=== PATIENT | female | born 1935 | race Caucasian/White ===

== ENCOUNTER 2018-02-11 20:02 | Observation (INO) | payer OTHER ==
[2018-02-11 20:31] LABS: Absolute Lymphocytes (CBC) 2.3 K/uL (0.7-4.9); Absolute Monocytes 1.1 K/uL (0.1-1.3); Absolute Neutrophil 5.7 K/uL (1.8-8.0); Basophils % 0.6 % (0-1.3); Eosinophils % 1.9 % (0-4.4); Hematocrit 41.5 % (36.0-45.0); Lymphocytes % 24.6 % (15.3-44.8); MCH 31.2 pg (27.0-35.0); MCV 92.2 fL (80-100); MPV 7.5 fL (7.6-11.3); Monocytes % 11.4 % (3.3-12.3)
[2018-02-11 20:36] LABS: Protime INR 0.87
[2018-02-11] MEDS ORDERED: NA CHLORIDE 0.9% 1,000 ML ONE (20:46)
--- NOTE | 2018-02-11 20:46 | ER ---
Nurse's Notes [facility] Name: Tonya Lindsey Age: 83 yrs Sex: Female : 1935 Arrival Date: 02/11/2018 Time: 20:03 Bed 6 Private MD: Alex Albert V Diagnosis: Chest pain, unspecified;Essential (primary) hypertension Presentation: 02/11 20:09 Presenting complaint: Patient states: she has been having chest heaviness for several bb days worsening the last two days. Transition of care: patient was not received from another setting of care. Onset of symptoms was February 09, 2018. Risk Assessment: Do you want to hurt yourself or someone else? Patient reports no desire to harm self or others. Initial Sepsis Screen: Does the patient meet any 2 criteria? No. Patient's initial sepsis screen is negative. Does the patient have a suspected source of infection? No. Patient's initial sepsis screen is negative. Care prior to arrival: None. 20:09 Method Of Arrival: Wheelchair bb 20:09 Acuity: MAHIN 2 bb Historical: - Allergies: 20:13 Codeine; bb 20:13 Aspirin; bb 20:13 PENICILLINS; bb - PMHx: 20:13 Hypertension; bb - PSHx: 20:13 Appendectomy; Thyroidectomy; bb - Immunization history:: Adult Immunizations up to date. - Social history:: Smoking status: Patient/guardian denies using tobacco, never smoked. - Ebola Screening: : Patient negative for fever greater than or equal to 101.5 degrees Fahrenheit, and additional compatible Ebola Virus Disease symptoms Patient denies exposure to infectious person Patient denies travel to an Ebola-affected area in the 21 days before illness onset. - Family history:: not pertinent. Screenin:16 Abuse screen: Denies threats or abuse. Denies injuries from another. Nutritional bs1 screening: No deficits noted. Tuberculosis screening: No symptoms or risk factors identified. Fall Risk None identified. Assessment: 20:15 General: Appears in no apparent distress. uncomfortable, Behavior is cooperative, bs1 appropriate for age, anxious. Pain: Complains of pain in mid chest Pain does not radiate. Pain began gradually. Pain: Pain began 2-3 days ago. Neuro: Level of Consciousness is awake, alert, obeys commands, Oriented to person, place, time, situation, Appropriate for age Denies blurred vision numbness headache. Cardiovascular: Reports chest pain, Denies nausea, shortness of breath, Heart tones S1 S2 present Capillary refill < 3 seconds Patient's skin is warm and dry. Respiratory: Airway is patent Trachea midline Respiratory effort is even, unlabored, Respiratory pattern is regular, symmetrical, Breath sounds are clear bilaterally. GI: No signs and/or symptoms were reported involving the gastrointestinal system. : No signs and/or symptoms were reported regarding the genitourinary system. EENT: No signs and/or symptoms were reported regarding the EENT system. Derm: Skin is intact, Skin is pink, warm \T\ dry. normal. Musculoskeletal: Circulation, motion, and sensation intact. Capillary refill < 3 seconds, Range of motion: intact in all extremities. 21:40 Reassessment: CHELSEA Adair Informed Dr Denton of blood pressure increased. Orders given tl2 by 21:55 Reassessment: Blood pressure now 155/61, pulse 66. tl2 22:17 Reassessment: Patient appears in no apparent distress at this time. Patient and/or bs1 family updated on plan of care and expected duration. Pain level reassessed. Patient is alert, oriented x 3, equal unlabored respirations, skin warm/dry/pink. Informed patient of admission to 4th floor/ POC. Patient states understanding of POC. Patient denies pain at this time. Patient states feeling better. Vital Signs: 20:14 BP 196 / 83; Pulse 65; Resp 18; Temp 98.6; Pulse Ox 98% on R/A; Pain 0/10; bb 20:53 BP 170 / 81; Pulse 61; Resp 18; Pulse Ox 97% on R/A; mw2 20:54 Weight 88.59 kg (M); bs1 21:33 BP 208 / 57; Pulse 66; Resp 17; Pulse Ox 95% on R/A; tl2 21:45 BP 150 / 56; Pulse 64; Resp 17 S; Pulse Ox 99% on R/A; tl2 21:49 BP 155 / 61; Pulse 66; Resp 18; Pulse Ox 96% on R/A; tl1 22:15 BP 143 / 54; Pulse 67; Resp 17; Temp 98(O); Pulse Ox 98% on R/A; Pain 0/10; bs1 ED Course: 20:03 Patient arrived in ED. es 20:04 Alex Albert MD is Private Physician. es 20:10 Patient has correct armband on for positive identification. Placed in gown. Bed in low bs1 position. Call light in reach. Side rails up X 1. control equipment electrician on. Pulse ox on. NIBP on. Warm blanket given. 20:11 Triage completed. bb 20:14 Arm band placed on right wrist. bb 20:15 No provider procedures requiring assistance completed. Inserted saline lock: 20 gauge bb in left wrist, using aseptic technique. 20:15 Patient maintains SpO2 saturation greater than 95% on room air. bs1 20:23 X-ray completed. Portable x-ray completed in exam room. Patient tolerated procedure bb2 well. 20:25 XRAY Chest (1 view) In Process Unspecified. EDMS 20:29 Leonides Denton MD is Attending Physician. vicki 20:45 Alex Albert MD is Hospitalizing Provider. vicki 21:14 Debi Wong, RN is Primary Nurse. bs1 22:17 Patient admitted, IV remains in place. intact. bs1 Administered Medications: 20:45 Drug: NS 0.9% 1000 ml Route: IV; Rate: 75 ml/hr; Site: right forearm; bs1 21:54 Follow up: IV Status: Infusion continued upon admission tl2 21:03 Drug: Lovenox 1 mg/kg Route: Sub-Q; Site: right lower abdomen; bs1 21:17 Follow up: Response: No adverse reaction bs1 21:04 Drug: Lopressor 25 mg Route: PO; bs1 21:54 Follow up: Response: Blood pressure is unchanged tl2 21:04 Drug: PlaVIX 300 mg Route: PO; bs1 21:54 Follow up: Response: No adverse reaction tl2 21:41 Drug: hydrALAZINE 10 mg Route: PO; tl1 21:53 Follow up: Response: No adverse reaction tl2 21:41 Drug: hydrALAZINE 5 mg Route: IV; Rate: per protocol; Site: right antecubital; tl1 21:54 Follow up: IV Status: Completed infusion tl2 22:15 Not Given (informed Dr Denton of latest blood pressure, order to not give): bs1 hydrALAZINE 5 mg IV at per protocol once Outcome: 20:45 Decision to Hospitalize by Provider. vicki 22:16 Admitted to Tele accompanied by nurse, via wheelchair, room 412, with chart, Report bs1 called to CHELSEA Allison 22:16 Condition: stable 22:16 Instructed on the need for admit, Demonstrated understanding of instructions. 22:36 Patient left the ED. tl2 Signatures: Dispatcher [employer] Leonides Tyler MD MD cha Salyer, Lorenza Gutierrez, RN RN bb Jeannette Aburto RN RN tl1 Licha Floyd RN RN tl2 Debi Wren bbDebi Kirk RN RN bs1 Sondra Hernandez 2
--- NOTE | 2018-02-11 20:46 | EDPHYS ---
Physician Documentation [facility] Name: Tonya Lindsey Age: 83 yrs Sex: Female : 1935 Arrival Date: 02/11/2018 Time: 20:03 Bed 6 Private MD: Alex Albert V ED Physician Leonides Denton HPI: 02/11 20:42 This 83 yrs old Female presents to ER via Wheelchair with complaints of Chest vicki Pain. 20:42 The patient or guardian reports chest pain that is located primarily in the substernal vicki area. Onset: 2 day(s) ago. The pain does not radiate. Associated signs and symptoms: Pertinent positives: shortness of breath. The chest pain is described as a pressure, squeezing. The chest pain is described as a pressure, squeezing. Duration: The patient or guardian reports multiple episodes, that are intermittent. Severity of pain: At its worst the pain was mild. The patient has experienced similar episodes in the past, a few times. Historical: - Allergies: 20:13 Codeine; bb 20:13 Aspirin; bb 20:13 PENICILLINS; bb - PMHx: 20:13 Hypertension; bb - PSHx: 20:13 Appendectomy; Thyroidectomy; bb - Immunization history:: Adult Immunizations up to date. - Social history:: Smoking status: Patient/guardian denies using tobacco, never smoked. - Ebola Screening: : Patient negative for fever greater than or equal to 101.5 degrees Fahrenheit, and additional compatible Ebola Virus Disease symptoms Patient denies exposure to infectious person Patient denies travel to an Ebola-affected area in the 21 days before illness onset. - Family history:: not pertinent. ROS: 20:42 Constitutional: Negative for fever, chills, and weight loss, Eyes: Negative for injury, vicki pain, redness, and discharge, ENT: Negative for injury, pain, and discharge, Neck: Negative for injury, pain, and swelling, Respiratory: Negative for shortness of breath, cough, wheezing, and pleuritic chest pain, Abdomen/GI: Negative for abdominal pain, nausea, vomiting, diarrhea, and constipation, Back: Negative for injury and pain, : Negative for injury, bleeding, discharge, and swelling, MS/Extremity: Negative for injury and deformity, Skin: Negative for injury, rash, and discoloration, Neuro: Negative for headache, weakness, numbness, tingling, and seizure. 20:42 Cardiovascular: Positive for chest pain. Exam: 20:42 Constitutional: This is a well developed, well nourished patient who is awake, alert, vicki and in no acute distress. Head/Face: Normocephalic, atraumatic. Eyes: Pupils equal round and reactive to light, extra-ocular motions intact. Lids and lashes normal. Conjunctiva and sclera are non-icteric and not injected. Cornea within normal limits. Periorbital areas with no swelling, redness, or edema. ENT: Nares patent. No nasal discharge, no septal abnormalities noted. Tympanic membranes are normal and external auditory canals are clear. Oropharynx with no redness, swelling, or masses, exudates, or evidence of obstruction, uvula midline. Mucous membranes moist. Neck: Trachea midline, no thyromegaly or masses palpated, and no cervical lymphadenopathy. Supple, full range of motion without nuchal rigidity, or vertebral point tenderness. No Meningismus. Chest/axilla: Normal chest wall appearance and motion. Nontender with no deformity. No lesions are appreciated. Cardiovascular: Regular rate and rhythm with a normal S1 and S2. No gallops, murmurs, or rubs. Normal PMI, no JVD. No pulse deficits. Respiratory: Lungs have equal breath sounds bilaterally, clear to auscultation and percussion. No rales, rhonchi or wheezes noted. No increased work of breathing, no retractions or nasal flaring. Abdomen/GI: Soft, non-tender, with normal bowel sounds. No distension or tympany. No guarding or rebound. No evidence of tenderness throughout. Back: No spinal tenderness. No costovertebral tenderness. Full range of motion. Female : Normal external genitalia. Skin: Warm, dry with normal turgor. Normal color with no rashes, no lesions, and no evidence of cellulitis. MS/ Extremity: Pulses equal, no cyanosis. Neurovascular intact. Full, normal range of motion. Neuro: Awake and alert, GCS 15, oriented to person, place, time, and situation. Cranial nerves II-XII grossly intact. Motor strength 5/5 in all extremities. Sensory grossly intact. Cerebellar exam normal. Normal gait. Psych: Awake, alert, with orientation to person, place and time. Behavior, mood, and affect are within normal limits. Vital Signs: 20:14 BP 196 / 83; Pulse 65; Resp 18; Temp 98.6; Pulse Ox 98% on R/A; Pain 0/10; bb 20:53 BP 170 / 81; Pulse 61; Resp 18; Pulse Ox 97% on R/A; mw2 20:54 Weight 88.59 kg (M); bs1 21:33 BP 208 / 57; Pulse 66; Resp 17; Pulse Ox 95% on R/A; tl2 21:45 BP 150 / 56; Pulse 64; Resp 17 S; Pulse Ox 99% on R/A; tl2 21:49 BP 155 / 61; Pulse 66; Resp 18; Pulse Ox 96% on R/A; tl1 22:15 BP 143 / 54; Pulse 67; Resp 17; Temp 98(O); Pulse Ox 98% on R/A; Pain 0/10; bs1 MDM: 20:39 Patient medically screened. [facility] 20:54 Data reviewed: vital signs, nurses notes, lab test result(s), EKG, radiologic studies, vicki plain films. 02/11 20:11 Order name: Basic Metabolic Panel 2 02/11 20:11 Order name: CBC with Diff 2 02/11 20:11 Order name: Ckmb; Complete Time: 20:55 2 02/11 20:11 Order name: CPK; Complete Time: 20:55 tl2 02/11 20:11 Order name: LFT's; Complete Time: 20:55 2 02/11 20:11 Order name: Magnesium; Complete Time: 20:55 tl2 02/11 20:11 Order name: NT PRO-BNP; Complete Time: 20:55 2 02/11 20:11 Order name: PT-INR; Complete Time: 20:39 2 02/11 20:11 Order name: Ptt, Activated; Complete Time: 20:39 2 02/11 20:11 Order name: Troponin (emerg Dept Use Only); Complete Time: 20:55 tl2 02/11 20:11 Order name: Basic Metabolic Panel; Complete Time: 20:55 EDMS 02/11 20:11 Order name: CBC with Automated Diff; Complete Time: 20:39 EDMS 02/11 20:31 Order name: Lipase; Complete Time: 20:55 EDMS 02/11 20:11 Order name: XRAY Chest (1 view) tl2 02/11 20:11 Order name: EKG; Complete Time: 20:12 tl2 02/11 20:11 Order name: Cardiac monitoring; Complete Time: 20:12 tl2 02/11 20:11 Order name: EKG - Nurse/Tech; Complete Time: 20:13 tl2 02/11 20:11 Order name: IV Saline Lock; Complete Time: 20:13 tl2 02/11 20:11 Order name: Labs collected and sent; Complete Time: 20:13 tl2 02/11 20:11 Order name: O2 Per Protocol; Complete Time: 20:13 tl2 02/11 20:11 Order name: O2 Sat Monitoring; Complete Time: 20:13 tl2 Administered Medications: 20:45 Drug: NS 0.9% 1000 ml Route: IV; Rate: 75 ml/hr; Site: right forearm; bs1 21:54 Follow up: IV Status: Infusion continued upon admission tl2 21:03 Drug: Lovenox 1 mg/kg Route: Sub-Q; Site: right lower abdomen; bs1 21:17 Follow up: Response: No adverse reaction bs1 21:04 Drug: Lopressor 25 mg Route: PO; bs1 21:54 Follow up: Response: Blood pressure is unchanged tl2 21:04 Drug: PlaVIX 300 mg Route: PO; bs1 21:54 Follow up: Response: No adverse reaction tl2 21:41 Drug: hydrALAZINE 10 mg Route: PO; tl1 21:53 Follow up: Response: No adverse reaction tl2 21:41 Drug: hydrALAZINE 5 mg Route: IV; Rate: per protocol; Site: right antecubital; tl1 21:54 Follow up: IV Status: Completed infusion tl2 22:15 Not Given (informed Dr Denton of latest blood pressure, order to not give): bs1 hydrALAZINE 5 mg IV at per protocol once Disposition: 02/11/18 20:45 Hospitalization ordered by Alex Albert for Observation. Preliminary diagnosis are Chest pain, unspecified, Essential (primary) hypertension. - Bed requested for Telemetry/MedSurg (observation). - Status is Observation. tl2 - Condition is Stable. - Problem is new. - Symptoms have improved. UTI on Admission? No Signatures: Dispatcher [employer] EDID Leonides Denton MD MD cha Ballard, Brenda, RN RN Francine Sofia ms JacebartJeannette, RN RN tl1 Licha Floyd, RN RN tl2 Debi Wong, RN RN bs1 Corrections: (The following items were deleted from the chart) 20:31 20:29 LIPASE+C.LAB.BRZ ordered. EDID EDID 21:29 20:45 Hospitalization Ordered by Alex Albert MD for Observation. Preliminary diagnosis ms is Chest pain, unspecified; Essential (primary) hypertension. Bed requested for Telemetry/MedSurg (observation). Status is Observation. Condition is Stable. Problem is new. Symptoms have improved. UTI on Admission? No. [facility] 22:36 21:29 02/11/2018 20:45 Hospitalization Ordered by Alex Albert MD for Observation. tl2 Preliminary diagnosis is Chest pain, unspecified; Essential (primary) hypertension. Bed requested for Telemetry/MedSurg (observation). Status is Observation. Condition is Stable. Problem is new. Symptoms have improved. UTI on Admission? No. ms
[2018-02-11 20:47] LABS: Albumin 3.4 g/dL (3.4-5.0); Bilirubin Direct 0.1 mg/dL (0-0.2); Bilirubin Total 0.4 mg/dL (0.2-1.0); CKMB Creatine Kinase MB 1.3 ng/mL (0.3-3.6); Potassium 3.8 mmol/L (3.5-5.1); Protein, Total 6.8 g/dL (6.4-8.2)
[2018-02-11] MEDS ORDERED: MORPHINE 4 MG/ML SYR IV PRN (20:48)
[2018-02-11] MEDS ORDERED: ACETAMINOPHEN 500 MG TAB PO PRN (20:48)
[2018-02-11] MEDS ORDERED: ONDANSETRON 4 MG/2 ML VIAL IV PRN (20:48)
[2018-02-11] MEDS: ENOXAPARIN 80 MG/0.8 ML SQ SCH (21:00)
[2018-02-11] MEDS ORDERED: FAMOTIDINE 20 MG/2 ML VIAL IV SCH (21:00)
[2018-02-11] MEDS ORDERED: ENOXAPARIN 100 MG/ML SYR SQ ONE (21:01)
--- NOTE | 2018-02-11 21:05 | RAD REPORT ---
EXAM DESCRIPTION: RAD - Chest Single View - 02/11/2018 8:25 pm CLINICAL HISTORY: CHEST PAIN Chest pain. COMPARISON: CHEST PA AND LAT 2 VIEW dated 02/19/2009 FINDINGS: Portable technique limits examination quality. The lungs are grossly clear. The heart is normal in size. No displaced fractures.Aortic atheroscleros is. IMPRESSION: No acute intrathoracic process suspected.
[2018-02-11] MEDS ORDERED: HYDRALAZINE HCL 20 MG/ML VIAL ONE (21:40)
[2018-02-12 02:46] VITALS: BMI 39.2
[2018-02-12 03:51] LABS: Urine Appearance CLEAR; Urine Bilirubin NEGATIVE (NEG); Urine Blood NEGATIVE (NEG); Urine Color YELLOW; Urine Glucose NEGATIVE (NEG); Urine Protein NEGATIVE (NEG); Urine Urobilinogen 0.2 mg/dL (0.2-1.0)
[2018-02-12 04:02] LABS: Urine Microscopic Reflex NO UMIC
[2018-02-12] MEDS ORDERED: METOPROLOL TAR 25 MG TAB PO SCH (06:00)
[2018-02-12 06:05] LABS: Absolute Lymphocytes (CBC) 2.1 K/uL (0.7-4.9); Absolute Monocytes 0.7 K/uL (0.1-1.3); Absolute Neutrophil 4.9 K/uL (1.8-8.0); Basophils % 0.5 % (0-1.3); Eosinophils % 1.6 % (0-4.4); Hematocrit 40.3 % (36.0-45.0); Lymphocytes % 27.1 % (15.3-44.8); MCH 31.5 pg (27.0-35.0); MCV 92.6 fL (80-100); MPV 7.9 fL (7.6-11.3); RBC Red Blood Cell Count 4.36 M/uL (3.86-4.86)
[2018-02-12 06:24] LABS: Potassium 4.5 mmol/L (3.5-5.1)
[2018-02-12] MEDS ORDERED: cloNIDine HCl 0.1 MG TAB PO PRN (06:45)
--- NOTE | 2018-02-12 06:47 | EKG ---
Test Date: 2018-02-11 Test Time: 20:03:14 Meter Readers Supervisor: MEASUREMENT RESULTS: Intervals: Rate: 71 PA: 188 QRSD: 82 QT: 394 QTc: 428 [place]: P: 79 PA: 188 QRS: 0 T: 78 INTERPRETIVE STATEMENTS: Sinus rhythm with premature atrial complexes Possible Anterior infarct, age undetermined Abnormal ECG Compared to ECG 02/11/2018 20:02:32 Atrial premature complex(es) now present Sinus arrhythmia no longer present Myocardial infarct finding still present Electronically Signed On 02-12-18 06:46:39 CDT by Chago Lopes
--- NOTE | 2018-02-12 06:47 | EKG ---
Test Date: 2018-02-11 Test Time: 20:02:32 C Unix Developer: MEASUREMENT RESULTS: Intervals: Rate: 69 AR: 194 QRSD: 78 QT: 390 QTc: 417 Denton: P: 71 AR: 194 QRS: 2 T: 68 INTERPRETIVE STATEMENTS: Normal sinus rhythm with sinus arrhythmia Possible Anterior infarct, age undetermined Abnormal ECG Compared to ECG 01/18/2001 12:15:00 Sinus bradycardia no longer present Myocardial infarct finding still present Electronically Signed On 02-12-18 06:46:49 CDT by Chago Lopes
--- NOTE | 2018-02-12 07:58 | RAD REPORT ---
EXAM DESCRIPTION: Gale Single View02/12/2018 6:42 am CLINICAL HISTORY: Chest pain COMPARISON: February 11, 2018 FINDINGS: An area of subsegmental atelectasis is present within the mid right lung. The remainder l ungs appear clear of acute infiltrate. The heart is mildly enlarged.
[2018-02-12] MEDS ORDERED: METOPROLOL XL 25 MG TAB PO SCH (09:00)
[2018-02-12] MEDS ORDERED: VALSARTAN 160 MG TAB PO SCH (09:00)
[2018-02-12] MEDS ORDERED: SPIRONOLACTONE 25 MG TABLET PO SCH (09:00)
[2018-02-12] MEDS ORDERED: HYDRALAZINE HCL 10 MG TABLET PO SCH (09:00)
[2018-02-12] MEDS ORDERED: CLOPIDOGREL 75 MG TABLET PO SCH (09:00)
[2018-02-12] MEDS ORDERED: HOME MED 1 EA UNK (Olmesartan Medoxomil [Olmesartan Medoxomil] 40 MG) PO SCH (09:00)
[2018-02-12] MEDS: ENOXAPARIN 80 MG/0.8 ML SQ SCH (09:00)
[2018-02-12] MEDS ORDERED: REGADENOSON 0.4 MG/5 ML SYR IV ONE (09:57)
--- NOTE | 2018-02-12 10:40 | CON ---
History Of Present Illness: Mrs. Lindsey is an 83-year-old. She came to the hospital with a variety of symptoms, chest pain was one of them. Overnight, her enzymes were all normal. EKGs do not show infarction, injury, or ischemia. 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 She is a patient of Dr. Waldrop. She has had numerous heart caths. It always said that her arteries are fine, but she has a stiff heart. I think it probably means diastolic dysfunction. She has never required a stent . She has had several heart caths, most recent one was about 3 years ago. She does not smoke. Does not use illegal drug. She has a longstanding history of hypertension. Allergies: SHE IS ALLERGIC TO ASPIRIN, CODEINE, AND PENICILLINS. Medications: Home medications are olmesartan, metoprolol, spironolactone, and clonidine. Physical Examination: Vital Signs: She is 4 feet 11 inches, 194 pounds. HEENT: Normal. Lungs: Clear. Heart: S4 gallop, otherwise normal. No significant murmur. Abdomen: Soft. Extremities: Normal. Normal distal pulses. Diagnostic Data: An electrocardiogram shows a questionable old anterior RI, not different from old E KGs. Impression: The patient is probably not having unstable angina, but we will decide whether she is re marcos for discharge after a pharmacologic stress test and echocardiogram. RED Voice ID: [id number] Report ID: [id number]
[2018-02-12 12:33] VITALS: TEMP 98.1
--- NOTE | 2018-02-12 12:42 | RAD REPORT ---
EXAM DESCRIPTION: NM - Rest Stress Cardiac Imaging - 02/12/2018 12:34 pm CLINICAL HISTORY: Chest pain COMPARISON: None. TECHNIQUE: The patient was administered 10.8 mCi of Tc 99m Sestamibi prior to resting SPECT imaging of the heart. The patient was then administered 31.9 mCi of Tc 99m Sestamibi following exercise or ph armacologic stress. Multiplanar SPECT images were reviewed. FINDINGS: The end diastolic volume is 70 ml, the end systolic volume is 22 ml, and the ejection frac tion is 69 %. No stress-induced ischemic changes are identifiable. Small focus of diminished activity anteroseptal wall near the apex is not clearly different between rest and stress imaging. Similarly, diminished ac tivity along the inferior wall is also unchanged between rest and stress imaging. IMPRESSION: No stress-induced ischemic change. Small fixed defects anteroseptal wall near the apex a nd in the inferior wall are probably attenuation artifacts. Scarring would be a lesser consideration. Ventricular volumes and ejection fraction well within normal range.
--- NOTE | 2018-02-12 14:13 | ECHO ---
HEIGHT: 4 ft 11 in WEIGHT: 194 lb 8 oz DATE OF STUDY: 02/12/[address]: Leonides Denton MD 2-DIMENSIONAL: YES M.MODE: YES DOPPLER: YES COLOR FLOW: YES TDS: NO PORTABLE: NO DEFINITY: NO BUBBLE STUDY: NO DIAGNOSIS: CHEST PAIN/HYPERTENSION CARDIAC HISTORY: CATHERIZATION: NO SURGERY: NO PROSTHETIC VALVE: NO PACEMAKER: NO MEASUREMENTS (cm) DIASTOLIC (NORMALS) SYSTOLIC (NORMALS) IVSd 1.0 (0.6-1.2) LA Diam 3.4 (1.9-4.0) LVEF 70% LVIDd 4.2 (3.5-5.7) LVIDs 2.5 (2.0-3.5) %FS 39% LVPWd 1.0 (0.6-1.2) Ao Diam 3.0 (2.0-3.7) 2 DIMENSIONAL ASSESSMENT: RIGHT ATRIUM: NORMAL LEFT ATRIUM: NORMAL RIGHT VENTRICLE: NORMAL LEFT VENTRICLE: NORMAL TRICUSPID VALVE: NORMAL MITRAL VALVE: NORMAL PULMONIC VALVE: NORMAL AORTIC VALVE: AORTIC STENOSIS, MILD PERICARDIAL EFFUSION: NONE AORTIC ROOT: NORMAL LEFT VENTRICULAR WALL MOTION: NORMAL. DOPPLER/COLOR FLOW: MILD AORTIC STENOSIS. PEAK/MEAN 22/12mmHg. ESTIMATED AORTIC VALVE AREA 1.9 CENTIMETERS SQUARED. MILD TRICUSPID REGURGITATION. MILD PULMONARY HYPERTENSION. ESTIMATED RIGHT VENTRICULAR SYSTOLIC PRESSURE 40mmHg. COMMENTS: NORMAL LEFT VENTRICULAR EJECTION FRACTION. MILD AORTIC STENOSIS. MILD TRICUSPID REGURGITATION. MILD PULMONARY HYPERTENSION. TECHNOLOGIST: NANCY SUAREZ
--- NOTE | 2018-02-12 14:17 | TREADPHA ---
DX: CHEST PAIN Date of Study: 02/12/2018 Ht: 4 11 Wt: 194 lb 8 oz Consulting Physician: GEGE MEDICATIONS: TYLENOL, CATAPRES, PLAVIX, LOVENOX, PEPCID, APRESOLINE, TOPROL, ZOFRAN HISTORY: 83 YEAR OLD FEMALE WITH COMPLAINTS OF CHEST PAIN. HISTORY OF HYPERTENSION. PHYSICIAL EXAMINATION: RESTING B.P.: 183/95 RESTING H.R.: 61 RESTING EKG: SINUS, CANNOT RULE OUT ANTERIOR MYOCARDIAL INFARCTION. PROTOCOL: LEXISCAN EXERCISE TIME: 3:30 B.P. AT PEAK STRESS: 179/63 IMPRESSION: LEXISCAN INJECTED, CARDIOLITE INJECTED PER PROTOCOL. SEE NUCLEAR MEDICINE REPORT. NO SUPRAVENTRICULAR TACHYCARDIA. NO VENTRICULAR TACHYCARDIA. MULTIPLE PREMATUE VENTRICULAR COMPLEXES. NON-DIAGNOSTIC ELECTROCARDIOGRAM WITH LEXISCAN STRESS.
--- NOTE | 2018-02-12 16:24 | RAD REPORT ---
EXAM DESCRIPTION: CT - Chest For Pe Angio - 02/12/2018 4:10 pm CLINICAL HISTORY: Chest pain COMPARISON: None. TECHNIQUE: Dynamically enhanced axial 3 mm thick images of the chest were obtained during administra tion of <100> mL Isovue 370 IV contrast. Coronal and oblique reconstruction images were generated and reviewed. Exam utilizes a protocol for optimal evaluation of pulmonary arterial tree. Maximum intensity projections 3D imaging was utilized All CT scans are performed using dose optimization technique as appropriate and may include automated exposure control or mA/KV adjustment according to patient size. FINDINGS: A pulmonary embolus is not seen. The evaluation of the subsegmental pulmonary arteries is somewhat limited secondary to respiratory artifact. A thoracic aortic aneurysm is not noted. A pleural effusion is not seen. A pericardial effusion is not seen. A lung consolidation is not present. A small hiatal hernia is present. Calcified fibroadenoma suspected within the right breast IMPRESSION: Negative for a pulmonary embolism.
[2018-02-12 16:56] VITALS: BP 165/55
--- NOTE | 2018-02-12 17:13 | P.SSS ---
Patient History Date of Service: 02/12/18 Reason for admission: CHEST HEAVINESS History of Present Illness: MR. MOORE GOES TO [employer] IN [place]. SHE HAD BEEN TO MY OFFICE ABOUT TWO YEARS AGO. SHE COMES FOR CHEST HEAVINESS WITHOUT RADIATION, NAUSEA, DIAPHORESIS. WE DID ST TEST THAT IS NEGATIVE FOR ANY REVERSIBLE CHANGES. ECHO WAS DONE FOR AORTIC MURMUR THAT SHOWS MILD BUT NOT ENOUGH TO GIVE SYMPTOMS. THEY WERE NOT IMPRESSIVE I ORDERED CT CHEST AND THAT IS NEG FOR PE OR DISSECTION. SHE WHEN I CALLED NOW HAS NO SYMPTOMS AND IS EAGER TO GO HOME. Allergies aspirin Allergy (Verified 02/11/18 21:29) Hives codeine Allergy (Verified 02/11/18 21:29) Hives Penicillins Allergy (Verified 02/11/18 21:29) Hives Home Medications: Clonidine HCl [Catapres] 0.1 mg PO DAILY PRN 02/12/18 Hydralazine HCl 25 mg PO BID #60 tablet 02/12/18 Metoprolol Succinate 25 mg PO DAILY 02/12/18 Olmesartan Medoxomil 40 mg PO DAILY 02/12/18 - Past Medical/Surgical History Has patient received pneumonia vaccine in the past: No Diabetic: No -: HTN -: left foot neuroma -: hysterectomy -: appendectomy -: cardiac cath -: foot sx - Family History Mother -: Heart disease Father History Unknown: Yes -: Heart disease - Social History Smoking Status: Never smoker Alcohol use: Yes CD- Drugs: No Caffeine use: Yes Place of Residence: Home Review of Systems 10-point ROS is otherwise unremarkable Cardiovascular: Chest Pain Physical Examination - Vital Signs Temperature: 98.1 F Blood Pressure: 165/55 Pulse: 68 Respirations: 20 Pulse Ox (%): 100 - Physical Exam General: Alert, In no apparent distress HEENT: Atraumatic, PERRLA, Mucous membr. moist/pink, EOMI, Sclerae nonicteric Neck: Supple, 2+ carotid pulse no bruit, No LAD, Without JVD or thyroid abnormality Respiratory: Clear to auscultation bilaterally, Normal air movement Cardiovascular: Normal S1 S2, Systolic murmur (AORTIC SYSTOLIC.) Gastrointestinal: Normal bowel sounds, No tenderness Musculoskeletal: No tenderness Integumentary: No rashes Neurological: Normal gait, Normal speech, Normal strength at 5/5 x4 extr, Normal tone, Normal affect Lymphatics: No axilla or inguinal lymphadenopathy - Studies Laboratory Data (last 24 hrs) 02/11/18 20:29: Lipase Cancelled 02/11/18 20:15: PT 10.2, INR 0.87, APTT 28.6 02/11/18 20:15: WBC 9.3, Hgb 14.0, Hct 41.5, Plt Count 227 02/11/18 20:15: Sodium 141, Potassium 3.8, BUN 26 H, Creatinine 0.90, Glucose 116 H, Magnesium 2.0, Total Bilirubin 0.4, AST 12 L, ALT 22, Alkaline Phosphatase 61, Lipase 260 - Diagnosis (Problem(s)) (1) Chest pain Current Visit: Yes Status: Acute (2) Hypertension Current Visit: Yes Status: Acute Plan: STOP SPIRONOLACTONE. ADD HYDRALAZINE 25 MG BID AND FU IN ONE WEEK. Qualifiers: Hypertension type: essential hypertension Qualified Code(s): I10 - Essential (primary) hypertension - Disposition Disposition: ROUTINE DISCHARGE Condition: FAIR Patient Discharge Instructions: COME TO OFFICE NEXT THURSDAY. PL CALL FOR APT TIME. STOP SPIRONOLACTONE. NEW HYDRALAZINE RX GIVEN. CONTINUE BENICAR AND TOPROL OR METOPROLOL. CLONIDINE CAN BE TAKEN BEFORE IF BP GOES HIGH.
[2018-02-12 17:28] VITALS: O2SAT 100
[2018-02-12] MEDS ORDERED: FAMOTIDINE 20 MG/2 ML VIAL IV SCH (21:00)
[2018-02-13] MEDS ORDERED: OLMESARTAN MEDOXOMIL 40 MG PO SCH (09:00)
== END 2018-02-12 18:40 | disposition home or self-care (01) ==
LOC: ER 20:02 → ERHOLD 20:49 → 4TH 22:16
PROVIDERS: ADMIT Internal Medicine; ATTEND Internal Medicine
DX: R07.9 Chest pain, unspecified (principal); I10 Essential (primary) hypertension; E66.9 Obesity, unspecified; Z68.39 Body mass index [BMI] 39.0-39.9, adult; Z88.6 Allergy status to analgesic agent; Z88.5 Allergy status to narcotic agent; Z88.0 Allergy status to penicillin
CPT/HCPCS: 36415; 71045 ×2; 71275; 78452; 80048 ×2; 80076; 81003; 82550; 82553; 83690; 83735; 83880; 84484 ×3; 85025 ×2; 85610; 85730; 93005 ×2; 93017; 93306; 96361; 96372; 96374; 99285; A9500; G0378 ×2; J0360; J1650; J2785; J7030; Q9967